=== PATIENT | male | born 1955 | race Caucasian/White ===

== ENCOUNTER 2022-03-16 17:18 | Inpatient (IN) ==
[2022-03-16] MEDS ORDERED: SODIUM CHLORIDE 0.9% 2,000 ML IV STA (17:32)
[2022-03-16] MEDS ORDERED: DIPH/TET/ACEL PERT BOOSTER VACCINE 0.5 ML VIAL IM ONE (17:32)
[2022-03-16 17:51] LABS: Basophils # 0.1 10*3/uL (0.0-0.2); Basophils % 0.4 % (0.0-0.8); Eosinophils # 0.3 10*3/uL (0.0-0.87); Eosinophils % 1.4 % (0.00-10.9); Hematocrit 42.8 VOL% (42.0-52.0); Immature Granulocytes % 1.5 %; Immature Granulocytes Absolute 0.27 #; Lymphocytes # 3.4 10*3/uL (1.4-4.0); Lymphocytes % 18.7 % (21.2-54.2); Mean Corpuscular HGB Conc 32.7 GM/DL (32-36); Mean Corpuscular Volume 93.4 FL (87-102); Mean Platelet Volume 11.1 FL (9.6-12.0); Monocytes # 1.2 10*3/uL (0.11-0.8); Monocytes % 6.3 % (1.7-12.7); Neutrophils % 71.7 % (38.7-73.9); Platelet Count 193 T/CUMM (130-400); Red Blood Count 4.58 MC/CUMM (3.8-5.5); Red Cell Distribution Width 12.6 % (9.3-17.3); White Blood Count 18.2 T/CUMM (4-12)
[2022-03-16 18:00] LABS: PT Patient Result 11.1 SECS (10.1-12.1)
[2022-03-16 18:08] LABS: Albumin 3.6 G/DL (3.4-5.0); Bilirubin,Total 0.8 MG/DL (0.20-1.00); Calcium 8.7 MG/DL (8.5-10.1); Potassium 3.9 MMOL/L (3.5-5.1); Total Protein 6.2 G/DL (6.4-8.2)
[2022-03-16] MEDS ORDERED: ONDANSETRON 4 MG/2 ML VIAL IV ONE (18:31)
[2022-03-16] MEDS ORDERED: HYDROmorphone 1 MG/1 ML SYRINGE IV STA ×2 (18:31→19:04)
[2022-03-16] MEDS ORDERED: ONDANSETRON 4 MG/2 ML VIAL ONE (18:32)
[2022-03-16] MEDS ORDERED: HYDROmorphone 1 MG/1 ML SYRINGE ONE (18:33)
[2022-03-16] MEDS ORDERED: ONDANSETRON 4 MG/2 ML VIAL IV PRN (19:03)
[2022-03-16] MEDS ORDERED: ACETAMINOPHEN 325 MG TABLET PO PRN (19:03)
[2022-03-16] MEDS ORDERED: PROMETHAZINE 25 MG/1 ML VIAL IM PRN (19:03)
[2022-03-16] MEDS: LACTATED RINGERS 1,000 ML IV SCH ×2 (19:45→22:32)
[2022-03-16] MEDS: HYDROmorphone 1 MG/1 ML SYRINGE IV PRN (22:36)
[2022-03-17] MEDS: HYDROmorphone 1 MG/1 ML SYRINGE IV PRN ×5 (02:30→22:23)
[2022-03-17 03:35] LABS: Basophils % 0.3 % (0.0-0.8); Hematocrit 36.4 VOL% (42.0-52.0); Hemoglobin 11.9 GM/DL (14.0-18.0); Immature Granulocytes % 0.5 %; Immature Granulocytes Absolute 0.05 #; Lymphocytes # 1.1 10*3/uL (1.4-4.0); Lymphocytes % 10.6 % (21.2-54.2); Mean Corpuscular HGB Conc 32.7 GM/DL (32-36); Mean Corpuscular Volume 94.8 FL (87-102); Mean Platelet Volume 10.3 FL (9.6-12.0); Monocytes # 1.1 10*3/uL (0.11-0.8); Neutrophils % 78.6 % (38.7-73.9); Platelet Count 136 T/CUMM (130-400); Red Blood Count 3.84 MC/CUMM (3.8-5.5); Red Cell Distribution Width 12.8 % (9.3-17.3); White Blood Count 10.8 T/CUMM (4-12)
[2022-03-17 03:53] LABS: Bilirubin,Total 1.2 MG/DL (0.20-1.00); Osmolality,Calculated 283.4 MOS/KG (273-304); Potassium 3.8 MMOL/L (3.5-5.1); Total Protein 5.3 G/DL (6.4-8.2)
[2022-03-17] MEDS: LACTATED RINGERS 1,000 ML IV SCH ×3 (05:21→19:37)
[2022-03-17] MEDS: PANTOPRAZOLE 40 MG TABLET PO SCH (08:40)
[2022-03-17] MEDS ORDERED: HYDROmorphone 1 MG/1 ML SYRINGE IV PRN (10:17)
[2022-03-17] MEDS ORDERED: ONDANSETRON 4 MG/2 ML VIAL IV PRN (10:17)
[2022-03-17] MEDS: METHOCARBAMOL INJ 500 MG in SODIUM CHLORIDE 0.9% 100 ML IV SCH ×2 (14:37→21:36)
[2022-03-17] MEDS: LATANOPROST 0.005% OPH SOLN 2.5 ML BOTTLE RIGHT EYE SCH (21:40)
[2022-03-18] MEDS: HYDROmorphone 1 MG/1 ML SYRINGE IV PRN ×10 (02:40→22:16)
[2022-03-18] MEDS: LACTATED RINGERS 1,000 ML IV SCH ×3 (04:30→22:10)
[2022-03-18] MEDS: METHOCARBAMOL INJ 500 MG in SODIUM CHLORIDE 0.9% 100 ML IV SCH ×3 (06:32→22:09)
[2022-03-18] MEDS: PANTOPRAZOLE 40 MG TABLET PO SCH (08:15)
[2022-03-18 08:25] LABS: Osmolality,Calculated 278.5 MOS/KG (273-304); Potassium 3.9 MMOL/L (3.5-5.1)
[2022-03-18] MEDS: TIMOLOL 0.5% OPH SOLN 5 ML BOTTLE BOTH EYES SCH (11:18)
[2022-03-18 14:18] LABS: Bilirubin,Urine Negative (Negative); Blood, Urine Moderate mg/dL (Negative); Glucose,Urine (UA) 50 mg/dL (Negative); Ketones,Urine Negative (Negative); Mucus,Urine Occasional /LPF (Occasional); Nitrite,Urine Negative (Negative); Protein,Urine 30 mg/dL (Negative); RBC,Urine 9 /HPF (0-4); Urine Appearance CLEAR (Clear); Urine Color Yellow (Yellow); Urine Urobilinogen < 2.0 eU/dL (<2.0)
[2022-03-18] MEDS: POLYETHYLENE GLYCOL POWDER 17 GM PACK PO SCH (20:15)
[2022-03-18] MEDS: LATANOPROST 0.005% OPH SOLN 2.5 ML BOTTLE RIGHT EYE SCH (20:16)
[2022-03-19] MEDS: HYDROmorphone 1 MG/1 ML SYRINGE IV PRN ×7 (02:19→21:33)
[2022-03-19] MEDS: METHOCARBAMOL INJ 500 MG in SODIUM CHLORIDE 0.9% 100 ML IV SCH ×3 (05:35→21:33)
[2022-03-19] MEDS: LACTATED RINGERS 1,000 ML IV SCH ×3 (07:15→17:46)
[2022-03-19] MEDS ORDERED: ROPIVACAINE 0.5% 30 ML VIAL MISC INJ ONE (08:30)
[2022-03-19] MEDS ORDERED: TRIAMCINOLONE ACETONIDE 40 MG/1 ML VIAL MISC INJ ONE (08:30)
[2022-03-19] MEDS ORDERED: POLYETHYLENE GLYCOL POWDER 17 GM PACK PO SCH (09:00)
[2022-03-19] MEDS: TIMOLOL 0.5% OPH SOLN 5 ML BOTTLE BOTH EYES SCH (09:51)
[2022-03-19] MEDS: PANTOPRAZOLE 40 MG TABLET PO SCH (09:51)
[2022-03-19] MEDS: POLYETHYLENE GLYCOL POWDER 17 GM PACK PO SCH (09:51)
[2022-03-19] MEDS ORDERED: DEXAMETHASONE 4 MG/1 ML VIAL IV SCH (17:00)
[2022-03-19] MEDS: LATANOPROST 0.005% OPH SOLN 2.5 ML BOTTLE RIGHT EYE SCH (21:37)
[2022-03-20] MEDS: HYDROmorphone 1 MG/1 ML SYRINGE IV PRN (00:03)
[2022-03-20 00:36] VITALS: BP 149/86
[2022-03-20] MEDS ORDERED: TRIAMCINOLONE ACETONIDE 40 MG/1 ML VIAL MISC INJ ONE (06:00)
[2022-03-20] MEDS ORDERED: ROPIVACAINE 0.5% 30 ML VIAL NERVEBLOCK ONE (06:00)
== END 2022-03-20 | disposition hospice, home (50) | DRG 964 ==
LOC: N.ED 17:18 → N.EDINP 19:03 → N.3E 20:39
PROVIDERS: ADMIT Surgery; ATTEND Surgery